=== PATIENT | male | born 1940 | race Hispanic/Latino ===

== ENCOUNTER 2025-02-16 07:18 | Day surgery (SDC) | payer MEDICARE ==
[2025-02-16] VITALS (11 sets, daily range): BP systolic 115–145; BP diastolic 65–79; PULSE 65–95; RESP 16–18; TEMP 97.1–97.8
[~2025-02-16] VITALS: Ht 185.4 cm; Wt 106.6 kg
[~2025-02-16 07:18] MED LIST: 0.9%NACL 1000ML 1,000 ML IV ONE
[2025-02-16] MEDS ORDERED: OMEP40CA21 PO (09:22)
[2025-02-16] MEDS ORDERED: IRON1CAP32 PO (09:22)
[2025-02-16] MEDS ORDERED: CARB100T61 PO (09:22)
[2025-02-16] MEDS ORDERED: TELM1TAB48 PO (09:22)
[2025-02-16] MEDS ORDERED: HYDR12.54 PO (09:22)
[2025-02-16] MEDS ORDERED: APIX5TAB PO (09:22)
[2025-02-16] MEDS ORDERED: LIDOCAINE PF 100MG/5ML (2%) SYRINGE 5ML ONE (10:21)
[2025-02-16] MEDS ORDERED: proPOFol 10 MG/ML 20ML VIAL IV ONE (10:21)
--- NOTE | 2025-02-16 11:57 | NUR ---
REPEAT COLONOSCOPY PATIENT WILL REPEAT COLONOSCOPY TOMORROW 02/17/25.
== END 2025-02-16 12:00 | disposition home or self-care (01) ==
LOC: ENDO 07:18 → DAH 07:18 → ENDO 12:00
PROVIDERS: ATTEND Internal Medicine Gastroenterology
DX: D50.9 Iron deficiency anemia, unspecified (principal); K31.89 Other diseases of stomach and duodenum; K44.9 Diaphragmatic hernia without obstruction or gangrene; I10 Essential (primary) hypertension; E11.9 Type 2 diabetes mellitus without complications; R12 Heartburn; R14.2 Eructation; E66.01 Morbid (severe) obesity due to excess calories; N19 Unspecified kidney failure; Z87.898 Personal history of other specified conditions; Z79.899 Other long term (current) drug therapy; Z86.2 Personal history of diseases of the blood and blood-forming organs and certain disorders involving the immune mechanism; Z98.41 Cataract extraction status, right eye; Z98.42 Cataract extraction status, left eye; Z86.718 Personal history of other venous thrombosis and embolism; Z99.3 Dependence on wheelchair; Z68.31 Body mass index [BMI] 31.0-31.9, adult
CPT/HCPCS: 82948 ×2; 43239; 45378; J7030; J2003; J2704; A4620; A4215; A4223; A7002; A4222; A4221; A4663; A4606; J3490

== ENCOUNTER 2025-02-17 05:52 | Day surgery (SDC) | payer MEDICARE ==
[~2025-02-17] VITALS: Ht 188 cm; Wt 106.6 kg
[2025-02-17] VITALS (17 sets, daily range): BP systolic 120–156; BP diastolic 72–86; PULSE 63–95; RESP 18–22; TEMP 96.9–97.1
[~2025-02-17 05:52] MED LIST changes: -0.9%NACL 1000ML 1,000 ML IV ONE; +APIX5TAB PO; +CARB100T61 PO; +HYDR12.54 PO; +IRON1CAP32 PO; +OMEP40CA21 PO; +TELM1TAB48 PO
[2025-02-17] MEDS: 0.9%NACL 1000ML 1,000 ML IV ONE (06:50)
[2025-02-17] MEDS ORDERED: LIDOCAINE PF 100MG/5ML (2%) SYRINGE 5ML ONE (07:38)
[2025-02-17] MEDS ORDERED: proPOFol 10 MG/ML 20ML VIAL IV ONE (07:38)
[2025-02-17] MEDS: IpraTROPium/alBUTERol SULFATE 3 ML SOLUTION IH ONE ×2 (09:41→09:42)
== END 2025-02-17 09:50 | disposition home or self-care (01) ==
LOC: DAH 05:52 → ENDO 05:52
PROVIDERS: ATTEND Internal Medicine Gastroenterology
DX: D50.9 Iron deficiency anemia, unspecified (principal); D12.2 Benign neoplasm of ascending colon; D12.0 Benign neoplasm of cecum; D12.5 Benign neoplasm of sigmoid colon; I10 Essential (primary) hypertension; E11.9 Type 2 diabetes mellitus without complications; G40.909 Epilepsy, unspecified, not intractable, without status epilepticus; R14.2 Eructation; N19 Unspecified kidney failure; E66.01 Morbid (severe) obesity due to excess calories; Z86.718 Personal history of other venous thrombosis and embolism; Z98.42 Cataract extraction status, left eye; Z98.41 Cataract extraction status, right eye; Z99.3 Dependence on wheelchair; Z79.899 Other long term (current) drug therapy
CPT/HCPCS: 45381; 45380; 45385; 82948; 94640; J7030; J2003; J2704; A4620; A4215; J3490